=== PATIENT | male | born 1980 | race American Indian/Alaskan Native ===

== ENCOUNTER 2019-07-12 20:15 | Emergency (ER) | payer MEDICAID, OTHER ==
[2019-07-12] MEDS ORDERED: Clindamycin HCl 150 MG Cap PO ONE (21:13)
--- NOTE | 2019-07-12 21:16 | EDM.PDOC ---
ED HPI GENERAL MEDICAL PROBLEM - General Chief Complaint: Bite:Animal, Insect Stated Complaint: BIT BY A DOG, LEFT HAND, LEFT CALF AND KNEE Time Seen by Provider: 07/12/19 21:10 Source of Information: Reports: Patient History Limitations: Reports: No Limitations - History of Present Illness INITIAL COMMENTS - FREE TEXT/NARRATIVE: was pumping gas when dog from another car jumped out and bit him. 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 ED EXAM, ANIMAL BITE - Physical Exam Exam: See Below Exam Limited By: No Limitations General Appearance: Alert, WD/WN, Mild Distress, Other (upset) Ears: Hearing Grossly Normal Throat/Mouth: Normal Voice, No Airway Compromise Head: Atraumatic Neck: Non-Tender, Full Range of Motion Respiratory/Chest: No Respiratory Distress Cardiovascular: Regular Rate, Rhythm GI/Abdominal: Soft, Non-Tender Extremities: Other (left calf spfl bite non suturable, left knee minor abrasion , left thumb minor abrasion, normal ROM, NV wnl, gait limited to pain) Neurological: Alert, Oriented, Normal Cognition, No Motor/Sensory Deficits Psychiatric: Normal Affect, Normal Mood Skin Exam: Normal Color, Warm/Dry Lymphatic: No Adenopathy Course - Vital Signs Last Recorded V/S: Last Vital Signs Temp 37.6 C 07/12/19 20:47 Pulse 98 07/12/19 20:47 Resp 18 07/12/19 20:47 BP 116/84 07/12/19 20:47 Pulse Ox 98 07/12/19 20:47 Departure - Departure Time of Disposition: 21:15 Disposition: Home, Self-Care 01 Condition: Good Clinical Impression: Dog bite Qualifiers: Encounter type: initial encounter Qualified Code(s): W54.0XXA - Bitten by dog, initial encounter - Discharge Information Instructions: Animal Bite, Adult, [id number] Additional Instructions: 1) keep wounds clean dry covered 2) follow up at clinic Sepsis Event Note - Evaluation Sepsis Screening Result: No Definite Risk - Focused Exam Vital Signs: Vital Signs Temp Pulse Resp BP Pulse Ox 07/12/19 20:47 37.6 C 98 18 116/84 98 Date Exam was Performed: 07/12/19 Time Exam was Performed: 21:10
[2019-07-12] MEDS ORDERED: Acetaminophen/HYDROcodone 325-10 MG Tab PO ONE (21:21)
== END 2019-07-12 21:32 | disposition home or self-care (01) ==
LOC: DL.ED 20:15
DX: S80.872A Other superficial bite, left lower leg, initial encounter (principal); S80.212A Abrasion, left knee, initial encounter; S60.312A Abrasion of left thumb, initial encounter; W54.0XXA Bitten by dog, initial encounter
CPT/HCPCS: 99283; A9270